=== PATIENT | male | born 1975 ===

== ENCOUNTER 2017-11-24 16:45 | Emergency (ER) | payer BC ==
[2017-11-24 16:48] VITALS: BMI 23.7
[2017-11-24 16:54] VITALS: RESP 18
[2017-11-24] MEDS ORDERED: Tmp-Smz 800 mg-160 mg DS Tab PO STA (17:13)
[2017-11-24] MEDS ORDERED: cefTRIAXone (Rocephin) 1 gm Inj IM STA (17:14)
--- NOTE | 2017-11-24 17:15 | ED PDOC ---
Arrival/HPI - General Historian: Patient - General Chief Complaint: Bite Time Seen by Provider: 11/24/17 16:53 - History of Present Illness Narrative History of Present Illness (Text): 11/24/17 17:32 41yo male with no pmhx who present with complaint of insect bite to his left thigh x 2days. States he is not sure of the type of the insect that bite him. states he started taking a left over Keflex and the redness worsened. Admits to mild pain to the area. Denies fever, chills, nausea, abdominal pain, any other complaint. (Olivia,Pooja A) Past Medical History - Provider Review Nursing Documentation Reviewed: Yes - Infectious Disease Hx of Infectious Diseases: None - Pulmonary Hx Asthma: Yes - Psychiatric Hx Substance Use: No - Anesthesia Hx Anesthesia Reactions: No Hx Malignant Hyperthermia: No Family/Social History - Physician Review Nursing Documentation Reviewed: Yes Family/Social History: Unknown Family HX Smoking Status: Never Smoked Hx Alcohol Use: Yes Frequency of alcohol use: Socially Hx Substance Use: No Allergies/Home Meds Allergies/Adverse Reactions: Allergies almonds Allergy (Uncoded 11/24/17 16:48) ANAPHYLAXIS Home Medications: Home Meds Medication Instructions Recorded Confirmed Albuterol HFA [Ventolin HFA 90 2 puff INH PRN PRN 11/24/17 11/24/17 mcg/actuation (8 g)] Review of Systems - Physician Review All systems were reviewed & negative as marked: Yes - Review of Systems Constitutional: Normal Eyes: Normal ENT: Normal Respiratory: Normal Cardiovascular: Normal Gastrointestinal: Normal Genitourinary Male: Normal Musculoskeletal: Normal Skin: Cellulitis (Insect bite) Neurological: Normal Endocrine: Normal Hemo/Lymphatic: Normal Psychiatric: Normal Physical Exam Vital Signs Reviewed: Yes Temperature: Afebrile Blood Pressure: Normal Pulse: Regular Respiratory Rate: Normal Appearance: Positive for: Well-Appearing, Non-Toxic, Comfortable Pain Distress: None Mental Status: Positive for: Alert and Oriented X 3 - Systems Exam Head: Present: Atraumatic, Normocephalic Pupils: Present: PERRL Extroacular Muscles: Present: EOMI Conjunctiva: Present: Normal Mouth: Present: Moist Mucous Membranes Neck: Present: Normal Range of Motion Respiratory/Chest: Present: Clear to Auscultation, Good Air Exchange. No: Respiratory Distress, Accessory Muscle Use Cardiovascular: Present: Regular Rate and Rhythm, Normal S1, S2. No: Murmurs Abdomen: No: Tenderness, Distention, Peritoneal Signs Back: Present: Normal Inspection Upper Extremity: Present: Normal Inspection. No: Cyanosis, Edema Lower Extremity: Present: Normal Inspection. No: Edema Neurological: Present: GCS=15, CN II-XII Intact, Speech Normal Skin: Present: Warm, Dry, Normal Color, Other (Approximately 2 x 2cm area of induration with surrounding erythema and central punture wound noted.). No: Rashes Psychiatric: Present: Alert, Oriented x 3, Normal Insight, Normal Concentration Vital Signs Temp Pulse Resp BP Pulse Ox 11/24/17 18:10 98.6 F 90 18 130/72 97 11/24/17 16:45 98.7 F 96 H 18 134/81 96 Medical Decision Making ED Course and Treatment: 11/24/17 18:21 32yo male presented with insect bite with super imposed cellulitis. He was afebrile and have no co morbidties. He was stable to be DC home on oral abx. He was strongly advised to observe for worsening redness or fever and return to ED promptly. He was treated in ED with Rocephin and Bactrim DC and DC home with keflex and Bactrim DS. (Pooja Baker) - Medication Orders Current Medication Orders: Discontinued Medications Ceftriaxone Sodium (Rocephin) 1 gm IM STAT STA PRN Reason: Protocol Stop: 11/24/17 17:15 Last Admin: 11/24/17 17:58 Dose: 1 gm IM Administration Charges Document 11/24/17 17:58 HI (Rec: 11/24/17 17:58 MD [id number]) Injection Site MAR Injection Site Left Gluteus Robin Charges for Administration # of IM Administrations 1 Ibuprofen (Motrin Tab) 600 mg PO STAT STA Stop: 11/24/17 17:15 Last Admin: 11/24/17 17:55 Dose: 600 mg MAR Pain/Vitals Document 11/24/17 17:55 HI (Rec: 11/24/17 17:58 MD [id number]) Pain Reassessment Is This A Pain ReAssessment? No Sleep Is patient sleeping during reassessment? No Presence of Pain Presence of Pain Yes Location Left, Right or Bilateral Left Upper or Lower Lower Pain Location Body Site leg Trimethoprim/Sulfamethoxazole (Bactrim Ds Tab) 1 tab PO STAT STA PRN Reason: Protocol Stop: 11/24/17 17:14 Last Admin: 11/24/17 17:58 Dose: 1 tab Disposition/Present on Arrival - Present on Arrival Any Indicators Present on Arrival: No History of DVT/PE: No History of Uncontrolled Diabetes: No Urinary Catheter: No History of Decub. Ulcer: No History Surgical Site Infection Following: None - Disposition Have Diagnosis and Disposition been Completed?: Yes Disposition Time: 17:50 Patient Plan: Discharge - Disposition Diagnosis: Insect bite, Cellulitis Disposition: HOME/ ROUTINE Condition: STABLE Discharge Instructions (ExitCare): Insect Bites and Stings, Cellulitis (Skin Infection), Adult (DC), Cellulitis (ED) Additional Instructions: Take medication as directed Return to ED for worsening, fever Follow up with your Doctor Prescriptions: Cephalexin [cephalexin] 500 mg PO QID #40 cap Ibuprofen [Motrin Tab] 600 mg PO Q6 #20 tab Sulfamethoxazole/Trimethoprim [Bactrim DS 800 mg-160 mg] 1 tab PO BID #20 tab Referrals: Onelia Melendez MD [Staff Provider] - Follow up with primary Forms: [facility] (Belizean), WORK NOTE
[2017-11-24 18:25] VITALS: BP 130/72; PULSE 90; TEMP 98.6; O2SAT 97
== END 2017-11-24 18:10 | disposition home or self-care (01) ==
LOC: ED 16:45
DX: S70.362A Insect bite (nonvenomous), left thigh, initial encounter (principal); L03.116 Cellulitis of left lower limb; W57.XXXA Bitten or stung by nonvenomous insect and other nonvenomous arthropods, initial encounter; Y92.9 Unspecified place or not applicable
CPT/HCPCS: 96372; 99283; J0696

== ENCOUNTER 2017-12-26 08:12 | Emergency (ER) | payer BC ==
[2017-12-26 08:13] VITALS: BMI 23.7
[2017-12-26 08:29] VITALS: O2SAT 97
--- NOTE | 2017-12-26 08:30 | ED PDOC ---
Arrival/HPI - General Chief Complaint: Shortness Of Breath Time Seen by Provider: 12/26/17 08:20 Historian: Patient - History of Present Illness Narrative History of Present Illness (Text): 12/26/17 08:22 42 year old male, with no significant past medical history, who presents to the Emergency department complaining of asthma symptoms since earlier this morning. Patient notes he ran out of his Advair about 2 weeks ago and took Albuterol last night for the symptoms. Patient denies any recent travel, fevers, chills, chest pain, nausea, vomiting, diarrhea, or any other complaint. Time/Duration: 1-3 hours (earlier this morning ) Symptom Onset: Sudden Symptom Course: Unchanged Quality: Tightness Severity Level: 5 Context: Home Past Medical History - Provider Review Nursing Documentation Reviewed: Yes - Travel History Have you recently traveled outside US w/in the past 3 mons?: No - Infectious Disease Hx of Infectious Diseases: None - Pulmonary Hx Asthma: Yes - Psychiatric Hx Substance Use: No - Anesthesia Hx Anesthesia Reactions: No Hx Malignant Hyperthermia: No Family/Social History - Physician Review Nursing Documentation Reviewed: Yes Family/Social History: No Known Family HX Smoking Status: Never Smoked Hx Alcohol Use: Yes Hx Substance Use: No Allergies/Home Meds Allergies/Adverse Reactions: Allergies almonds Allergy (Uncoded 12/26/17 08:22) ANAPHYLAXIS Home Medications: Home Meds Medication Instructions Recorded Confirmed Albuterol HFA [Ventolin HFA 90 2 puff INH PRN PRN 11/24/17 12/26/17 mcg/actuation (8 g)] Review of Systems - Physician Review All systems were reviewed & negative as marked: Yes - Review of Systems Constitutional: Normal. absent: Fevers Eyes: Normal ENT: Normal Respiratory: Cough. absent: Normal Cardiovascular: Normal. absent: Chest Pain Gastrointestinal: Normal. absent: Diarrhea, Nausea, Vomiting Genitourinary Male: Normal Musculoskeletal: Normal Skin: Normal Neurological: Normal Endocrine: Normal Hemo/Lymphatic: Normal Psychiatric: Normal Physical Exam Vital Signs Reviewed: Yes Vital Signs Temp Pulse Resp BP Pulse Ox 12/26/17 09:13 97.8 F 104 H 18 144/83 97 12/26/17 09:10 97.8 F 80 18 144/83 97 12/26/17 08:24 20 97 12/26/17 08:19 97.5 F L 83 19 99 Temperature: Afebrile Blood Pressure: Normal Pulse: Regular Respiratory Rate: Normal Appearance: Positive for: Well-Appearing, Non-Toxic, Comfortable Pain Distress: None Mental Status: Positive for: Alert and Oriented X 3 - Systems Exam Head: Present: Atraumatic, Normocephalic Pupils: Present: PERRL Extroacular Muscles: Present: EOMI Conjunctiva: Present: Normal Mouth: Present: Moist Mucous Membranes Neck: Present: Normal Range of Motion Respiratory/Chest: Present: Clear to Auscultation, Good Air Exchange, Wheezes ( mild respiratory wheeze bilaterally). No: Respiratory Distress, Accessory Muscle Use Cardiovascular: Present: Regular Rate and Rhythm, Normal S1, S2. No: Murmurs Abdomen: No: Tenderness, Distention, Peritoneal Signs Back: Present: Normal Inspection Upper Extremity: Present: Normal Inspection. No: Cyanosis, Edema Lower Extremity: Present: Normal Inspection. No: Edema Neurological: Present: GCS=15, CN II-XII Intact, Speech Normal Skin: Present: Warm, Dry, Normal Color. No: Rashes Psychiatric: Present: Alert, Oriented x 3, Normal Insight, Normal Concentration Medical Decision Making ED Course and Treatment: 12/26/17 08:22 Impression: 42 year old male presents to the emergency department for asthma symptoms since earlier this morning. Differential Diagnosis included but are not limited to: Plan: -- Duoneb 3 mg/0.5 mg (3ml) -- predniSONE 60 mg PO -- Reassess and disposition Prior Visits: Notes and results from previous visits were reviewed. Patient was last seen in the emergency department on 11/24/17 for insect bite to his left thigh x 2days prior to arrival. Patient was discharged home, told to take medication as directed, to return to ED for worsening symptoms, and to follow up with PMD. Progress Notes: 12/26/17 09:2 Patient feels better, lungs are better, SAT 100 % on room air. - Medication Orders Current Medication Orders: Discontinued Medications Albuterol/Ipratropium (Duoneb 3 Mg/0.5 Mg (3 Ml) Ud) 3 ml IH Q15M AMARA Stop: 12/26/17 09:01 Last Admin: 12/26/17 08:37 Dose: 3 ml Prednisone (Prednisone Tab) 60 mg PO STAT ONE Stop: 12/26/17 08:23 Last Admin: 12/26/17 08:43 Dose: 60 mg - Brownibe Statement The provider has reviewed the documentation as recorded by the Brownibe Antonia Bragg All medical record entries made by the Brownibjeni were at my direction and personally dictated by me. I have reviewed the chart and agree that the record accurately reflects my personal performance of the history, physical exam, medical decision making, and the department course for this patient. I have also personally directed, reviewed, and agree with the discharge instructions and disposition. Disposition/Present on Arrival - Present on Arrival Any Indicators Present on Arrival: No History of DVT/PE: No History of Uncontrolled Diabetes: No Urinary Catheter: No History of Decub. Ulcer: No History Surgical Site Infection Following: None - Disposition Have Diagnosis and Disposition been Completed?: Yes Diagnosis: Asthma exacerbation Disposition: HOME/ ROUTINE Disposition Time: 09:00 Condition: IMPROVED Discharge Instructions (ExitCare): Asthma, Adult (DC) Additional Instructions: LOIS LOCKHART, thank you for letting us take care of you today. Your provider was Aba Ch DO and you were treated for asthma. The emergency medical care you received today was directed at your acute symptoms. If you were prescribed any medication, please fill it and take as directed. It may take several days for your symptoms to resolve. Return to the Emergency Department if your symptoms worsen, do not improve, or if you have any other problems. Please contact your doctor or call one of the physicians/clinics you have been referred to that are listed on the Patient Visit Information form that is included in your discharge packet. Bring any paperwork you were given at discharge with you along with any medications you are taking to your follow up visit. Our treatment cannot replace ongoing medical care by a primary care provider outside of the emergency department. Thank you for allowing the [facility] team to be part of your care today. Follow up with your primary care doctor in 2-3 days for re-evaluation and further management. Prescriptions: Albuterol Sulfate [Ventolin Hfa] 2 puff IH Q4 PRN #1 unit PRN Reason: wheeze Fluticasone/Salmeterol 250/50 [Advair Diskus] 1 puff IH BID #1 dsk predniSONE [Prednisone] 40 mg PO DAILY #10 tab Referrals: FAMILY PROVIDER,NO [Primary Care Provider] - Follow up with primary Forms: [facility] (Albanian)
[2017-12-26] MEDS: Albuterol-Ipratrop 3 mg / 0.5 (3 ml) UD IH SCH (08:37)
[2017-12-26 09:12] VITALS: BP 144/83; RESP 18; TEMP 97.8
[2017-12-26 09:14] VITALS: PULSE 104
== END 2017-12-26 09:12 | disposition home or self-care (01) ==
LOC: ED 08:12
DX: J45.901 Unspecified asthma with (acute) exacerbation (principal)

== ENCOUNTER 2018-04-24 05:44 | Emergency (ER) | payer BC ==
[2018-04-24 05:44] VITALS: BMI 23.7
[2018-04-24 06:01] VITALS: TEMP 97.8
[2018-04-24] MEDS ORDERED: Albuterol-Ipratrop 3 mg / 0.5 (3 ml) UD IH STA (06:05)
--- NOTE | 2018-04-24 07:38 | ED PDOC ---
Arrival/HPI - General Historian: Patient - History of Present Illness Narrative History of Present Illness (Text): 04/24/18 07:33 42 y/o M with PMHx of asthma presents to ED with complaints of SOB and wheezing that he noticed this am. He arrived to ED as he recently ran out of his rescue inhaler (ventolin), and his wheezing was not resolving. He reports he uses his inhaler up to 2 times/day with adequate control of symptoms. He reports he has an appointment with his PMD in the upcoming week. He denies recent exposure to allergens. He denies recent illness, cough, congestion, fevers, chills, headache, dizziness, chest pain, palpitations, shortness of breath, n/v/c/d. PMD: Dr. Jeanette Andrade ([facility]) 04/24/18 07:38 Time/Duration: Prior to Arrival Symptom Onset: Sudden, Gradual Symptom Course: Resolved Severity Level: 5 Context: Walking <Darwin Chiu - Last Filed: 04/24/18 07:49> <Daniel Rod - Last Filed: 04/24/18 07:58> - General Chief Complaint: Shortness Of Breath Past Medical History - Provider Review Nursing Documentation Reviewed: Yes - Infectious Disease Hx of Infectious Diseases: None - Pulmonary Hx Asthma: Yes - Psychiatric Hx Substance Use: Yes - Anesthesia Hx Anesthesia Reactions: No Hx Malignant Hyperthermia: No <Darwin Chiu - Last Filed: 04/24/18 07:49> Family/Social History - Physician Review Nursing Documentation Reviewed: Yes Family/Social History: Unknown Family HX Smoking Status: Never Smoked Hx Alcohol Use: Yes Frequency of alcohol use: Socially Hx Substance Use: Yes Substance used: marijuana <Darwin Chiu - Last Filed: 04/24/18 07:49> Allergies/Home Meds <Darwin Chiu - Last Filed: 04/24/18 07:49> <Daniel Rod - Last Filed: 04/24/18 07:58> Allergies/Adverse Reactions: Allergies almonds Allergy (Uncoded 12/26/17 08:22) ANAPHYLAXIS Home Medications: Home Meds Medication Instructions Recorded Confirmed Albuterol HFA [Ventolin HFA 90 2 puff INH PRN PRN 11/24/17 04/24/18 mcg/actuation (8 g)] Review of Systems - Physician Review All systems were reviewed & negative as marked: Yes - Review of Systems Constitutional: Normal. absent: Fevers Eyes: Normal ENT: Normal Respiratory: Normal. absent: SOB, Cough Cardiovascular: Normal. absent: Chest Pain, Palpitations Gastrointestinal: Normal Genitourinary Male: Normal Musculoskeletal: Normal Skin: Normal. absent: Rash Neurological: Normal Endocrine: Normal Hemo/Lymphatic: Normal Psychiatric: Normal <Darwin Chiu - Last Filed: 04/24/18 07:49> Physical Exam Vital Signs Reviewed: Yes Vital Signs Temp Pulse Resp BP Pulse Ox 04/24/18 05:59 97.8 F 65 20 131/81 99 Temperature: Afebrile Blood Pressure: Normal Pulse: Regular Respiratory Rate: Normal Appearance: Positive for: Well-Appearing, Non-Toxic, Comfortable Pain Distress: None Mental Status: Positive for: Alert and Oriented X 3 - Systems Exam Head: Present: Atraumatic, Normocephalic Pupils: Present: PERRL Extroacular Muscles: Present: EOMI Conjunctiva: Present: Normal Mouth: Present: Moist Mucous Membranes Neck: Present: Normal Range of Motion Respiratory/Chest: Present: Clear to Auscultation, Good Air Exchange. No: Respiratory Distress, Accessory Muscle Use Cardiovascular: Present: Regular Rate and Rhythm, Normal S1, S2. No: Murmurs Abdomen: No: Tenderness, Distention, Peritoneal Signs Back: Present: Normal Inspection Upper Extremity: Present: Normal Inspection. No: Cyanosis, Edema Lower Extremity: Present: Normal Inspection. No: Edema Neurological: Present: GCS=15, CN II-XII Intact, Speech Normal Skin: Present: Warm, Dry, Normal Color. No: Rashes Psychiatric: Present: Alert, Oriented x 3, Normal Insight, Normal Concentration <Darwin Chiu - Last Filed: 04/24/18 07:49> Vital Signs Temp Pulse Resp BP Pulse Ox 04/24/18 05:59 97.8 F 65 20 131/81 99 <Daniel Rod - Last Filed: 04/24/18 07:58> Medical Decision Making ED Course and Treatment: 04/24/18 07:40 Impression: 42 y/o M with PMHx of asthma presents to ED with wheezing/SOB Differential diagnosis includes but is not limited to: Mild asthma exacerbation Prior notes and results have been reviewed Plan: Duoneb treatment Re-assess & dispo Progress Notes: Pt has received duoneb treatment. Pt report significant improvement. Pt re- evaluated. No wheezing noted. Pt reports he arrived to ED as his ventolin inhaler has finished. Pt has follow-up appointment with PMD scheduled next week. <Darwin Chiu - Last Filed: 04/24/18 07:49> ED Course and Treatment: 04/24/18 07:57 Seen and examined with the resident. Our history and physical exam reveals a young man who has run out of his albuterol inhaler. He had some shortness of breath early in the morning. He was given a DuoNeb treatment prior to my shift beginning. He states that he is no longer short of breath. His lungs are clear. He is requesting a prescription for an albuterol inhaler. <Daniel Rod - Last Filed: 04/24/18 07:58> - PA / FARM TECHNICIAN / Resident Statement / has reviewed & agrees with the documentation as recorded. / has examined the patient and agrees with the treatment plan. <Darwin Chiu - Last Filed: 04/24/18 07:49> Disposition/Present on Arrival - Present on Arrival Any Indicators Present on Arrival: No History of DVT/PE: No History of Uncontrolled Diabetes: No Urinary Catheter: No History of Decub. Ulcer: No History Surgical Site Infection Following: None - Disposition Have Diagnosis and Disposition been Completed?: Yes Disposition Time: 07:43 <Darwin Chiu - Last Filed: 04/24/18 07:49> <Daniel Rod - Last Filed: 04/24/18 07:58> - Disposition Diagnosis: Wheezing, Asthma Disposition: HOME/ ROUTINE Patient Problems: Current Active Problems Problem Status Onset Asthma Acute Wheezing Acute Condition: GOOD Discharge Instructions (ExitCare): Asthma, Adult (DC) Prescriptions: Albuterol HFA [Ventolin HFA 90 mcg/actuation (8 g)] 2 puff IH [id number] PRN #1 inhaler PRN Reason: Shortness Of Breath Forms: [facility] (Uruguayan)
[2018-04-24 08:06] VITALS: BP 127/78; PULSE 68; RESP 18; O2SAT 100
== END 2018-04-24 07:55 | disposition home or self-care (01) ==
LOC: ED 05:44
DX: J45.909 Unspecified asthma, uncomplicated (principal)

== ENCOUNTER 2018-05-02 06:26 | Emergency (ER) | payer BC ==
[2018-05-02 06:37] VITALS: BMI 24.9
[2018-05-02 06:39] VITALS: RESP 18; O2SAT 97
[2018-05-02] MEDS ORDERED: Oxycodone/Acetaminophen 5/325 mg Tab PO STA (07:09)
--- NOTE | 2018-05-02 07:13 | ED PDOC ---
Arrival/HPI - General Chief Complaint: Finger,Hand,&Wrist Time Seen by Provider: 05/02/18 06:52 - History of Present Illness Narrative History of Present Illness (Text): 05/02/18 07:09 42 year old M R hand dominant w/ no significant PMH presenting to the Emergency Department for swelling of the right 5th digit ongoing for the last several years. The patient states he noted swelling to the proximal portion of the 5th digit of his right hand, describing pain worsened with flexion. He denies any recent trauma, falls, or open breaks in skin. He denies fevers, chills, chest pain, nausea/emesis, abdominal pain, dizziness, parasthesias or loss of gross m otor function at this time. No PMD Time/Duration: < week Symptom Onset: Gradual Symptom Course: Worsening Quality: Tightness Severity Level: Mild Activities at Onset: Rest Context: Home Past Medical History - Provider Review Nursing Documentation Reviewed: Yes - Travel History Have you recently traveled outside US w/in the past 3 mons?: No - Infectious Disease Hx of Infectious Diseases: None - Pulmonary Hx Respiratory Disorders: Yes Hx Asthma: Yes - Psychiatric Hx Substance Use: Yes - Anesthesia Hx Anesthesia Reactions: No Hx Malignant Hyperthermia: No Family/Social History - Physician Review Nursing Documentation Reviewed: Yes Family/Social History: Unknown Family HX Smoking Status: Never Smoked Hx Alcohol Use: Yes Frequency of alcohol use: Socially Hx Substance Use: Yes Substance used: marijuana Allergies/Home Meds Allergies/Adverse Reactions: Allergies almonds Allergy (Uncoded 12/26/17 08:22) ANAPHYLAXIS Home Medications: Home Meds Medication Instructions Recorded Confirmed Albuterol HFA [Ventolin HFA 90 2 puff INH PRN PRN 11/24/17 05/02/18 mcg/actuation (8 g)] Review of Systems - Physician Review All systems were reviewed & negative as marked: Yes - Review of Systems Musculoskeletal: Joint Swelling Physical Exam Vital Signs Reviewed: Yes Vital Signs Temp Pulse Resp BP Pulse Ox 05/02/18 06:35 97.7 F 69 18 116/69 97 Temperature: Afebrile Blood Pressure: Normal Pulse: Regular Appearance: Positive for: Well-Appearing, Non-Toxic, Comfortable Mental Status: Positive for: Alert and Oriented X 3 - Systems Exam Head: Present: Atraumatic, Normocephalic Pupils: Present: PERRL Extroacular Muscles: Present: EOMI Conjunctiva: Present: Normal Mouth: Present: Moist Mucous Membranes Respiratory/Chest: Present: Clear to Auscultation, Good Air Exchange. No: Respiratory Distress Cardiovascular: Present: Regular Rate and Rhythm, Normal S1, S2. No: Murmurs Upper Extremity: Present: Normal Inspection, NORMAL PULSES, Tenderness (tenderness to palpation of 5th metacarpal), Swelling (fusiform swelling of proximal portionof the 5th metacarpal joint of R hand), Capillary Refill < 2s, Other (No fluctuance noted. Small area of induration noted to palmar aspect of 5th digit. No pain w/ flexion or passive extension of digit.). No: Cyanosis, Edema, Erythema Skin: Present: Warm, Dry, Normal Color. No: Rashes Medical Decision Making ED Course and Treatment: 05/02/18 07:16 Impression 42M w/ swelling to the 5th finger Differential Diagnoses Include But Are Not Limited To: --Flexor tenosynovitis --Felon --Paronychia Plan --R hand XR --Percocet --Reassess & disposition Progress Notes 05/02/18 08:22 XR reviewed with no evidence of acute fracture, gas/air or dislocations noted. Due to unusual location of pain and lack of fluctuance, I & D will not be pursued at this time. Patient updated on plan of care for antibiotics and advised to monitor symptoms(continued swelling, fever, or inability to move joint) and if worsened to return to the emergency department. He demonstrates understanding and will follow up. Scripts provided. He is stable for discharge. - RAD Interpretation Radiology Orders: 05/02/18 07:00 HAND RIGHT 5TH DIGIT (FINGER) [RAD] Stat Disposition/Present on Arrival - Present on Arrival Any Indicators Present on Arrival: No History of DVT/PE: No History of Uncontrolled Diabetes: No Urinary Catheter: No History of Decub. Ulcer: No History Surgical Site Infection Following: None - Disposition Have Diagnosis and Disposition been Completed?: Yes Diagnosis: Finger infection, Finger pain Disposition: HOME/ ROUTINE Disposition Time: 08:17 Patient Plan: Discharge Condition: STABLE Discharge Instructions (ExitCare): Common Finger Injuries (DC) Print Language: MALTESE Additional Instructions: Please apply warm compresses to finger and take antibiotics as prescribed Follow up with your PCP/clinic in 2-5 days Prescriptions: Clindamycin [Cleocin] 300 mg PO TID 10 Days #30 cap Cyclobenzaprine [Cyclobenzaprine HCl] 10 mg PO Q6H #10 tab Ibuprofen [Motrin Tab] 800 mg PO Q6H #10 tab Referrals: Onelia Melendez MD [Medical Doctor] - Follow up with primary [facility] [place] - Follow up with primary Joe Cortez MD [Staff Provider] - Follow up with primary Forms: [facility] (Lao), WORK NOTE
[2018-05-02 08:30] VITALS: BP 124/79; PULSE 72; TEMP 97.9
--- NOTE | 2018-05-02 10:25 | RAD ---
Date of service: 05/02/2018 PROCEDURE: Right small finger radiographs. HISTORY: 5th finger pain COMPARISON: None. TECHNIQUE: AP radiograph of the right hand, as well as spot oblique and lateral images of small finger were obtained. FINDINGS: RIGHT SMALL FINGER: Normal right small finger, without acute fracture or focal lesion. Remainder of the right hand (as seen on the AP view) grossly unremarkable. JOINTS: Normal. SOFT TISSUES: There is mild diffuse soft tissue swelling in the little finger. OTHER FINDINGS: None. IMPRESSION: No acute displaced fracture or dislocation. Mild soft tissue swelling in the little finger.
== END 2018-05-02 08:34 | disposition home or self-care (01) ==
LOC: ED 06:26
DX: L08.9 Local infection of the skin and subcutaneous tissue, unspecified (principal); M79.644 Pain in right finger(s)

== ENCOUNTER 2018-08-10 17:54 | Emergency (ER) | payer BC, MEDICAID ==
[2018-08-10 18:40] VITALS: BP 131/74; PULSE 73; RESP 18; TEMP 98.2; O2SAT 95; BMI 23.7
--- NOTE | 2018-08-10 18:47 | ED PDOC ---
Arrival/HPI - General Chief Complaint: Male Genitourinary Time Seen by Provider: 08/10/18 18:03 Historian: Patient - History of Present Illness Narrative History of Present Illness (Text): 42 y/o male with PMH of asthma and recurrent genital herpes presents to the ED c/o herpes outbreak x 1 day. States the skin on the shaft of his penis is tingling and burning with vesicles beginning to appear, consistent with past herpes outbreaks. Last outbreak 2 years ago, and he has had 3 total. Denies fever, chills, penile discharge, testicular pain/swelling, urinary symptoms, abdominal pain, nausea, vomiting, back pain, or any other associated symptoms. Past Medical History - Provider Review Nursing Documentation Reviewed: Yes - Infectious Disease Hx of Infectious Diseases: None - Pulmonary Hx Respiratory Disorders: Yes Hx Asthma: Yes - Psychiatric Hx Substance Use: Yes - Anesthesia Hx Anesthesia: No Hx Anesthesia Reactions: No Hx Malignant Hyperthermia: No Family/Social History - Physician Review Nursing Documentation Reviewed: Yes Family/Social History: No Known Family HX Smoking Status: Never Smoked Hx Alcohol Use: Yes Hx Substance Use: Yes Substance used: marijuana Allergies/Home Meds Allergies/Adverse Reactions: Allergies almonds Allergy (Uncoded 12/26/17 08:22) ANAPHYLAXIS Home Medications: Home Meds Medication Instructions Recorded Confirmed Albuterol HFA [Ventolin HFA 90 2 puff INH PRN PRN 11/24/17 05/02/18 mcg/actuation (8 g)] Review of Systems - Review of Systems Constitutional: Normal. absent: Fevers Eyes: Normal. absent: Vision Changes ENT: Normal. absent: Sore Throat, Sinus Congestion Respiratory: Normal. absent: SOB, Cough Cardiovascular: Normal. absent: Chest Pain, Palpitations Gastrointestinal: Normal. absent: Abdominal Pain, Stool Changes, Nausea, Vomiting Genitourinary Male: Other (herpes outbreak). absent: Dysuria, Frequency Musculoskeletal: Normal. absent: Back Pain, Neck Pain Skin: Rash (penile) Neurological: Normal. absent: Headache, Dizziness Physical Exam Vital Signs Reviewed: Yes Vital Signs Temp Pulse Resp BP Pulse Ox 08/10/18 17:54 98.2 F 73 18 131/74 95 Temperature: Afebrile Blood Pressure: Normal Pulse: Regular Respiratory Rate: Normal Appearance: Positive for: Well-Appearing, Non-Toxic, Comfortable Pain Distress: None Mental Status: Positive for: Alert and Oriented X 3 - Systems Exam Head: Present: Atraumatic, Normocephalic Pupils: Present: PERRL Extroacular Muscles: Present: EOMI Conjunctiva: Present: Normal Mouth: Present: Moist Mucous Membranes Neck: Present: Normal Range of Motion. No: Meningeal Signs Respiratory/Chest: Present: Clear to Auscultation, Good Air Exchange. No: Respiratory Distress, Accessory Muscle Use Cardiovascular: Present: Regular Rate and Rhythm, Normal S1, S2, Peripheal Pulses Present Abdomen: Present: Normal Bowel Sounds. No: Tenderness, Distention, Peritoneal Signs Genitourinary Male: Present: Lesions (small developing vesicles to superior penile shaft). No: Penile Discharge, Testicle Tenderness, Testicle Swelling Back: Present: Normal Inspection. No: CVA Tenderness Upper Extremity: Present: Normal Inspection, Normal ROM, NORMAL PULSES, Neurovascularly Intact, Capillary Refill < 2s. No: Cyanosis, Edema, Temperature Abnormalties Lower Extremity: Present: Normal ROM. No: Edema Neurological: Present: GCS=15, CN II-XII Intact, Speech Normal, Motor Func Grossly Intact, Normal Sensory Function, Gait Normal Skin: Present: Warm, Dry, Normal Color. No: Rashes Psychiatric: Present: Alert, Oriented x 3, Normal Insight, Normal Concentration, Normal Affect, Normal Mood Medical Decision Making ED Course and Treatment: Patient with symptoms similar to past herpes outbreaks. Will treat with Valtrex. Advised PMD followup. Diagnostic testing results and plan of care discussed with patient. Strict instructions given regarding prescription use, importance of followup, and signs/symptoms to return to ER including worsening pain, fever, abdominal pain, nausea, vomiting, or any other new/worsening symptoms. Pt verbalized understanding of discussion. Patient is A&Ox3, ambulating with steady gait, with vital signs stable for discharge. Disposition/Present on Arrival - Present on Arrival Any Indicators Present on Arrival: No History of DVT/PE: No History of Uncontrolled Diabetes: No Urinary Catheter: No History of Decub. Ulcer: No History Surgical Site Infection Following: None - Disposition Have Diagnosis and Disposition been Completed?: Yes Diagnosis: Genital herpes Disposition: HOME/ ROUTINE Disposition Time: 18:44 Patient Plan: Discharge Condition: STABLE Discharge Instructions (ExitCare): Genital Herpes, Sexually-Transmitted Diseases (DC) Additional Instructions: Valtrex every 12 hours for 3 days Followup with primary doctor within 2 days Return to ER with any new/worsening symptoms Prescriptions: Valacyclovir HCl [Valacyclovir] 500 mg PO Q12 3 Days #6 tablet Referrals: Onelia Melendez MD [Medical Doctor] - Follow up with primary [facility] [place] [Outside] - Follow up with primary Forms: [employer] ([place]), WORK NOTE
== END 2018-08-10 18:55 | disposition home or self-care (01) ==
LOC: ED 17:54
DX: A60.00 Herpesviral infection of urogenital system, unspecified (principal)